=== PATIENT | male | born 1975 | race American Indian/Alaskan Native ===

== ENCOUNTER 2019-06-04 12:49 | Emergency (ER) | payer OTHER ==
[2019-06-04] MEDS ORDERED: NACL 0.9% 1000 ML 1,000 ML IV ONE (13:04)
[2019-06-04] MEDS ORDERED: ZOFRAN IV ONE (13:04)
[2019-06-04] MEDS ORDERED: PEPCID IV ONE (13:04)
[2019-06-04] MEDS ORDERED: TORADOL IV ONE (13:04)
[2019-06-04] MEDS ORDERED: BENTYL IM ONE (13:04)
[2019-06-04] MEDS ORDERED: MORPHINE IV ONE ×2 (13:04→15:21)
--- NOTE | 2019-06-04 13:10 | Event Note ---
ED Screening Note Date of service: 06/04/19 Time: 13:02 ED Screening Note: Patient rt lower abdomen 04/19 achy and constant. No medication. HX on Chrons Disease. Denies rectal bleeding or blood in vomit. Remorts nausea avomiting and diarrhea.. Denies fever or chills. ABD-TTP rlower and mid quadrant. Normal BS. VSS afeb This initial assessment/diagnostic orders/clinical plan/treatment(s) is/are subject to change based on patients health status, clinical progression and re- assessment by fellow clinical providers in the ED. Further treatment and workup at subsequent clinical providers discretion. Patient/guardian urged not to elope from the ED as their condition may be serious if not clinically assessed and managed. PCP DR. Loya GI: Diane Calvo and being worked up. In process of starting stelara which is being processed by insurance Initial orders include: labs, xray
[2019-06-04 13:45] LABS: Basophils # (Auto) 0.1 K/mm3 (0.0-0.1); Basophils % (Auto) 0.9 % (0.0-1.8); Eosinophils # (Auto) 0.1 K/mm3 (0.0-0.4); Eosinophils % (Auto) 1.2 % (0.0-4.3); Hematocrit 41.1 % (35.5-45.6); Hemoglobin 13.3 gm/dl (11.8-15.2); Lymphocytes # (Auto) 1.2 K/mm3 (1.2-5.4); Lymphocytes % (Auto) 18.4 % (13.4-35.0); Mean Corpuscular HGB Conc 33 % (32-34); Mean Corpuscular Volume 80 fl (84-94); Monocytes # (Auto) 0.5 K/mm3 (0.0-0.8); Monocytes % (Auto) 7.7 % (0.0-7.3); Platelet Count 338 K/mm3 (140-440); Red Blood Count 5.17 M/mm3 (3.65-5.03); Red Cell Distribution Width 20.6 % (13.2-15.2)
[2019-06-04 14:05] LABS: Bilirubin,Direct 0.2 mg/dL (0-0.2)
--- NOTE | 2019-06-04 15:15 | Cat Scan Report ---
CT ABDOMEN AND PELVIS WITH CONTRAST HISTORY: NVD right sided abd pain. COMPARISON: None. TECHNIQUE: CT images of the abdomen and pelvis were obtained following administration of intravenous contrast. All CT scans at this location are performed using CT dose reduction for ALARA by means of automated exposure control. CONTRAST: 100 ml of intravenous contrast administered. FINDINGS: Lungs/bones: Lung bases are clear. There are degenerative changes in the spine and pelvis with no ac srinath osseous abnormality identified. Abdomen/pelvis: Right-sided partial colectomy change is present with circumferential wall thickening involving the distal ileum leading up to the anastomotic site. There is also subtle surrounding stra nding in this region. There is moderate hepatic steatosis. The gallbladder, spleen, pancreas, adrenals, kidneys, and proxim al GI tract appear unremarkable. There is a small ventral wall hernia containing fat and a portion of the transverse colon with no bow el obstruction identified. No significant inflammatory change in this region. The prostate is enlarged. The bladder is partially collapsed but otherwise unremarkable. No pelvic fr ee fluid. No acute colonic abnormality. IMPRESSION: 1. Mild circumferential wall thickening in the distal ileum leading up to the anastomotic site consis tent with acute Crohn's flare. 2. Additional incidental findings as above. Signer Name: Andrea Canada MD Signed: 06/04/2019 3:11 PM Workstation Name: [id number]
[2019-06-04] MEDS ORDERED: DILAUDID IV ONE (16:25)
--- NOTE | 2019-06-04 16:31 | Emergency Department Report ---
ED Abdominal Pain HPI - General Chief Complaint: Abdominal Pain Stated Complaint: ABD PAIN Time Seen by Provider: 06/04/19 13:01 Source: patient Mode of arrival: Ambulatory Limitations: No Limitations - History of Present Illness Initial Comments: Patient is a 44-year-old -Algerian male with a past medical history of Crohn's disease who is presenting with nausea vomiting diarrhea. Patient has a history of Crohn's since that 2 bowel resections. Patient was seen his co op is to restart still Era very soon. Patient denies any blood in the vomit or stools. Patient started to worsen this morning. Patient states the pain is 10/10. Patient denies fever cough or congestion at this time. Severity scale (0 -10): 9 - Related Data Previous Rx's Medication Instructions Recorded Last Taken Type Ciprofloxacin HCl [Ciprofloxacin 500 mg PO Q12HR #14 tab 06/04/19 Unknown Rx TAB] Dicyclomine [Bentyl] 20 mg PO QID #10 tablet 06/04/19 Unknown Rx Ondansetron [Zofran Odt] 4 mg PO Q8HR #10 tab.rapdis 06/04/19 Unknown Rx Oxycodone HCl/Acetaminophen 1 each PO Q6HR PRN #14 tablet 06/04/19 Unknown Rx [Percocet 7.5/325 mg] metroNIDAZOLE [Flagyl] 500 mg PO Q12HR #14 tab 06/04/19 Unknown Rx Allergies Allergy/AdvReac Type Severity Reaction Status Date / Time No Known Allergies Allergy Unverified 06/04/19 12:52 ED Review of Systems ROS: Stated complaint: ABD PAIN Other details as noted in HPI Comment: All other systems reviewed and negative ED Past Medical Hx - Past Medical History Previous Medical History?: Yes Hx Hypertension: Yes Hx Kidney Stones: Yes Additional medical history: Crohn disease - Surgical History Past Surgical History?: Yes Additional Surgical History: Bowel resection x 2, Kidney stone surgery - Social History Smoking Status: Never Smoker Substance Use Type: Prescribed - Medications Home Medications: Home Medications Medication Instructions Recorded Confirmed Last Taken Type Ciprofloxacin HCl [Ciprofloxacin 500 mg PO Q12HR #14 tab 06/04/19 Unknown Rx TAB] Dicyclomine [Bentyl] 20 mg PO QID #10 tablet 06/04/19 Unknown Rx Ondansetron [Zofran Odt] 4 mg PO Q8HR #10 tab.rapdis 06/04/19 Unknown Rx Oxycodone HCl/Acetaminophen 1 each PO Q6HR PRN #14 tablet 06/04/19 Unknown Rx [Percocet 7.5/325 mg] metroNIDAZOLE [Flagyl] 500 mg PO Q12HR #14 tab 06/04/19 Unknown Rx ED Physical Exam - General Limitations: No Limitations General appearance: alert, in no apparent distress - Head Head exam: Present: atraumatic, normocephalic - Eye Eye exam: Present: normal appearance - ENT ENT exam: Present: mucous membranes moist - Neck Neck exam: Present: normal inspection - Respiratory Respiratory exam: Present: normal lung sounds bilaterally. Absent: respiratory distress, wheezes, rales, rhonchi - Cardiovascular Cardiovascular Exam: Present: regular rate, normal rhythm. Absent: systolic murmur, diastolic murmur, rubs, gallop - GI/Abdominal GI/Abdominal exam: Present: soft, tenderness (rmid abd), normal bowel sounds. Absent: distended, guarding, rebound, rigid - Rectal Rectal exam: Present: deferred - Extremities Exam Extremities exam: Present: normal inspection - Back Exam Back exam: Present: normal inspection - Neurological Exam Neurological exam: Present: alert, oriented X3 - Psychiatric Psychiatric exam: Present: normal affect, normal mood - Skin Skin exam: Present: warm, dry, intact, normal color. Absent: rash ED Course Vital Signs 06/04/19 06/04/19 06/04/19 12:52 13:40 14:10 Temperature 98.7 F Pulse Rate 102 H Respiratory 18 18 18 Rate Blood Pressure 138/92 O2 Sat by Pulse 97 Oximetry ED Medical Decision Making - Lab Data Result diagrams: 06/04/19 13:12 06/04/19 13:12 Lab Results 06/04/19 06/04/19 Range/Units 13:12 13:12 WBC 6.6 (4.5-11.0) K/mm3 RBC 5.17 H (3.65-5.03) M/mm3 Hgb 13.3 (11.8-15.2) gm/dl Hct 41.1 (35.5-45.6) % MCV 80 L (84-94) fl MCH 26 L (28-32) pg MCHC 33 (32-34) % RDW 20.6 H (13.2-15.2) % Plt Count 338 (140-440) K/mm3 Lymph % (Auto) 18.4 (13.4-35.0) % [place] % (Auto) 7.7 H (0.0-7.3) % Eos % (Auto) 1.2 (0.0-4.3) % Baso % (Auto) 0.9 (0.0-1.8) % Lymph # 1.2 (1.2-5.4) K/mm3 [place] # 0.5 (0.0-0.8) K/mm3 Eos # 0.1 (0.0-0.4) K/mm3 Baso # 0.1 (0.0-0.1) K/mm3 Seg Neutrophils % 71.8 H (40.0-70.0) % Seg Neutrophils # 4.8 (1.8-7.7) K/mm3 Sodium 140 (137-145) mmol/L Potassium 3.6 (3.6-5.0) mmol/L Chloride 101.8 (98-107) mmol/L Carbon Dioxide 22 (22-30) mmol/L Anion Gap 20 mmol/L BUN 11 (9-20) mg/dL Creatinine 1.5 (0.8-1.5) mg/dL Estimated GFR 51 ml/min BUN/Creatinine Ratio 7 % Glucose 219 H (75-100) mg/dL Calcium 9.0 (8.4-10.2) mg/dL Total Bilirubin 1.00 (0.1-1.2) mg/dL Direct Bilirubin 0.2 (0-0.2) mg/dL Indirect Bilirubin 0.8 mg/dL AST 17 (5-40) units/L ALT 22 (7-56) units/L Alkaline Phosphatase 67 (35-129) units/L Total Protein 7.9 (6.3-8.2) g/dL Albumin 4.0 (3.9-5) g/dL Albumin/Globulin Ratio 1.0 % Lipase 42 (13-60) units/L - Radiology Data [facility] [address] [place] [address] Cat Scan Report Signed Patient: RAFAEL SONI MR#: [id number] : 1975 Acct:[id number] Age/Sex: 44 / M ADM Date: 06/04/19 Loc: ED Attending Dr: Ordering Physician: CAMMIE MILLER MD Date of Service: 06/04/19 Procedure(s): CT abdomen pelvis w con Accession Number(s): [id number] cc: CAMMIE MILLER MD CT ABDOMEN AND PELVIS WITH CONTRAST HISTORY: NVD right sided abd pain. COMPARISON: None. TECHNIQUE: CT images of the abdomen and pelvis were obtained following administration of intravenous contrast. All CT scans at this location are performed using CT dose reduction for ALARA by means of automated exposure control. CONTRAST: 100 ml of intravenous contrast administered. FINDINGS: Lungs/bones: Lung bases are clear. There are degenerative changes in the spine and pelvis with no acute osseous abnormality identified. Abdomen/pelvis: Right-sided partial colectomy change is present with circumferential wall thickening involving the distal ileum leading up to the anastomotic site. There is also subtle surrounding stranding in this region. There is moderate hepatic steatosis. The gallbladder, spleen, pancreas, adrenals, kidneys, and proximal GI tract appear unremarkable. There is a small ventral wall hernia containing fat and a portion of the transverse colon with no bowel obstruction identified. No significant inflammatory change in this region. The prostate is enlarged. The bladder is partially collapsed but otherwise unremarkable. No pelvic free fluid. No acute colonic abnormality. IMPRESSION: 1. Mild circumferential wall thickening in the distal ileum leading up to the anastomotic site consistent with acute Crohn's flare. 2. Additional incidental findings as above. Signer Name: Andrea Canada MD Signed: 06/04/2019 3:11 PM Workstation Name: [id number] - Medical Decision Making Patient is a 44-year-old -Algerian male with history of Crohn's disease who is coming in with nausea vomiting abdominal pain. After 2 doses of morphine patient states his pain went from a 10-8. Patient states his pain is better controlled with Dilaudid be given one more dose. The patient appears relatively comfortable here in emergency department despite his high pain number. Patient is no longer nauseous. I think the patient is a good candidate for home therap y. Critical care attestation.: If time is entered above; I have spent that time in minutes in the direct care of this critically ill patient, excluding procedure time. ED Disposition Clinical Impression: Exacerbation of Crohn's disease Disposition: TO HOME OR SELFCARE Is pt being admited?: No Does the pt Need Aspirin: No Condition: Stable Instructions: Crohn Disease (ED) Referrals: DAMION ELLIOTT MD [Primary Care Provider] - 3-5 Days Time of Disposition: 16:35
[2019-06-04 17:00] VITALS: BP 133/87
== END 2019-06-04 16:51 | disposition home or self-care (01) ==
LOC: ED 12:49
DX: K50.90 Crohn's disease, unspecified, without complications (principal); R11.2 Nausea with vomiting, unspecified; I10 Essential (primary) hypertension; Z87.442 Personal history of urinary calculi; Z79.899 Other long term (current) drug therapy
CPT/HCPCS: 36415; 74177; 80048; 80076; 83690; 85025; 96361; 96372; 96374; 96375; 96376; 99284; J0500; J1170; J1885; J2270; J2405; J7030; Q9967

== ENCOUNTER 2019-06-19 06:22 | Emergency (ER) | payer OTHER ==
[2019-06-19 07:06] LABS: Alanine Aminotransferase 17 units/L (7-56); Albumin 4.1 g/dL (3.9-5); BUN/Creatinine Ratio 12; Blood Urea Nitrogen 13 mg/dL (9-20); Calcium 9.4 mg/dL (8.4-10.2); Hemolysis Index 3
[2019-06-19 07:12] LABS: Basophils % (Auto) 0.2 % (0.0-1.8); Eosinophils % (Auto) 0.3 % (0.0-4.3); Hematocrit 32.8 % (35.5-45.6); Hemoglobin 10.8 gm/dl (11.8-15.2); Lymphocytes # (Auto) 1.6 K/mm3 (1.2-5.4); Lymphocytes % (Auto) 16.4 % (13.4-35.0); Mean Corpuscular HGB Conc 33 % (32-34); Mean Corpuscular Volume 78 fl (84-94); Monocytes # (Auto) 0.9 K/mm3 (0.0-0.8); Monocytes % (Auto) 9.1 % (0.0-7.3); Platelet Count 308 K/mm3 (140-440); Red Cell Distribution Width 19.6 % (13.2-15.2)
[2019-06-19] MEDS ORDERED: oxyCODONE /ACETAMINOPHEN 5-325MG TAB PO ONE ×3 (08:11→13:48)
[2019-06-19] MEDS ORDERED: SODIUM CHLORIDE 0.9% 1000 ML 1,000 ML IV ONE (08:11)
[2019-06-19] MEDS ORDERED: ONDANSETRON 4 MG/2 ML INJ IV ONE (08:11)
[2019-06-19] MEDS ORDERED: MORPHINE 4 MG/1 ML INJ IV ONE ×3 (08:11→13:48)
[2019-06-19] MEDS ORDERED: ONDANSETRON 4 MG/2 ML INJ ONE (10:26)
[2019-06-19] MEDS ORDERED: MORPHINE 4 MG/1 ML INJ ONE (10:27)
[2019-06-19] MEDS ORDERED: levoFLOXacin 500 MG TAB PO ONE (10:54)
--- NOTE | 2019-06-19 10:57 | Emergency Department Report ---
ED Abdominal Pain HPI - General Chief Complaint: Abdominal Pain Stated Complaint: BEBETOMES Time Seen by Provider: 06/19/19 07:44 Source: patient Mode of arrival: Ambulatory Limitations: No Limitations - History of Present Illness Initial Comments: CC: "I am having a crohn's pain. My hip is also hurting." HPI: Mr. Houston is a 44-year-old male with history of Crohn's disease, hypertension who presents with right lower quadrant abdominal pain and chronic hip pain. Abdominal pain began last night at 8:00 with nausea vomiting. Denies any diarrhea. For the past several months he has been unable to receive Sular medication by his GI physician Dr. Rozina Mccarty with [facility]. He has been unemployed. He now has regained employment. He now has health insurance. He plans to resume Sular therapy. However since not having this medication for the past year he has had more Crohn's flares: He's had normal bowel movements. No constipation or diarrhea. He also has chronic hip pain due to avascular necrosis. Last use of steroids one month ago. MD Complaint: abdominal pain -: Gradual, Last night Location: RLQ Radiation: none Severity: severe Severity scale (0 -10): 10 Quality: aching Consistency: constant Improves With: nothing Worsens With: nothing Associated Symptoms: nausea, vomiting, other (chronic right hip pain) - Related Data Previous Rx's Medication Instructions Recorded Last Taken Type Ciprofloxacin HCl [Ciprofloxacin 500 mg PO Q12HR #14 tab 06/04/19 Unknown Rx TAB] Dicyclomine [Bentyl] 20 mg PO QID #10 tablet 06/04/19 Unknown Rx Ondansetron [Zofran Odt] 4 mg PO Q8HR #10 tab.rapdis 06/04/19 Unknown Rx Oxycodone HCl/Acetaminophen 1 each PO Q6HR PRN #14 tablet 06/04/19 Unknown Rx [Percocet 7.5/325 mg] metroNIDAZOLE [Flagyl] 500 mg PO Q12HR #14 tab 06/04/19 Unknown Rx Oxycodone HCl/Acetaminophen 1 each PO Q6HR PRN #10 tablet 06/19/19 Unknown Rx [Percocet 10/325 mg] Prednisone [predniSONE 10 mg 10 mg PO .TAPER #1 tab.ds.pk 06/19/19 Unknown Rx (6-Day Pack, 21 Tabs)] levoFLOXacin [Levaquin TAB] 500 mg PO QDAY 7 Days #7 tablet 06/19/19 Unknown Rx Allergies Allergy/AdvReac Type Severity Reaction Status Date / Time No Known Allergies Allergy Unverified 06/04/19 12:52 ED Review of Systems ROS: Stated complaint: CROMES Other details as noted in HPI Comment: All other systems reviewed and negative Constitutional: denies: fever, malaise Gastrointestinal: abdominal pain, nausea, vomiting. denies: diarrhea, constipation Musculoskeletal: arthralgia ED Past Medical Hx - Past Medical History Previous Medical History?: Yes Hx Hypertension: Yes Hx Kidney Stones: Yes Additional medical history: Crohn disease - Surgical History Past Surgical History?: Yes Additional Surgical History: Bowel resection x 2, Kidney stone surgery - Social History Smoking Status: Never Smoker Substance Use Type: None - Medications Home Medications: Home Medications Medication Instructions Recorded Confirmed Last Taken Type Ciprofloxacin HCl [Ciprofloxacin 500 mg PO Q12HR #14 tab 06/04/19 Unknown Rx TAB] Dicyclomine [Bentyl] 20 mg PO QID #10 tablet 06/04/19 Unknown Rx Ondansetron [Zofran Odt] 4 mg PO Q8HR #10 tab.rapdis 06/04/19 Unknown Rx Oxycodone HCl/Acetaminophen 1 each PO Q6HR PRN #14 tablet 06/04/19 Unknown Rx [Percocet 7.5/325 mg] metroNIDAZOLE [Flagyl] 500 mg PO Q12HR #14 tab 06/04/19 Unknown Rx Oxycodone HCl/Acetaminophen 1 each PO Q6HR PRN #10 tablet 06/19/19 Unknown Rx [Percocet 10/325 mg] Prednisone [predniSONE 10 mg 10 mg PO .TAPER #1 tab.ds.pk 06/19/19 Unknown Rx (6-Day Pack, 21 Tabs)] levoFLOXacin [Levaquin TAB] 500 mg PO QDAY 7 Days #7 tablet 06/19/19 Unknown Rx ED Physical Exam - General Limitations: No Limitations General appearance: alert, in no apparent distress, other (appears comfortable) - Head Head exam: Present: atraumatic, normocephalic - Eye Eye exam: Present: normal appearance - ENT ENT exam: Present: mucous membranes moist - Neck Neck exam: Present: normal inspection, full ROM - Respiratory Respiratory exam: Present: normal lung sounds bilaterally. Absent: respiratory distress, wheezes, rales, rhonchi - Cardiovascular Cardiovascular Exam: Present: regular rate, normal rhythm, normal heart sounds. Absent: systolic murmur, diastolic murmur, rubs, gallop - GI/Abdominal GI/Abdominal exam: Present: soft. Absent: distended, tenderness, guarding, rebound - Rectal Rectal exam: Present: deferred - Extremities Exam Extremities exam: Present: normal inspection - Neurological Exam Neurological exam: Present: alert, oriented X3 - Psychiatric Psychiatric exam: Present: normal affect, normal mood - Skin Skin exam: Present: warm, dry, intact, normal color. Absent: rash ED Course Vital Signs 06/19/19 06/19/19 06/19/19 06:25 06:26 10:33 Temperature 98.3 F Pulse Rate 93 H 67 72 Respiratory 20 20 Rate Blood Pressure 161/94 Blood Pressure 166/101 150/93 [Right] O2 Sat by Pulse 100 99 Oximetry 06/19/19 12:18 Temperature Pulse Rate Respiratory Rate Blood Pressure Blood Pressure 145/87 [Right] O2 Sat by Pulse Oximetry ED Medical Decision Making - Lab Data Result diagrams: 06/19/19 06:36 06/19/19 06:36 Laboratory Results - last 24 hr 06/19/19 06/19/19 06:36 06:36 WBC 9.7 RBC 4.20 Hgb 10.8 L Hct 32.8 L MCV 78 L MCH 26 L MCHC 33 RDW 19.6 H Plt Count 308 Lymph % (Auto) 16.4 [place] % (Auto) 9.1 H Eos % (Auto) 0.3 Baso % (Auto) 0.2 Lymph # 1.6 [place] # 0.9 H Eos # 0.0 Baso # 0.0 Seg Neutrophils % 74.0 H Seg Neutrophils # 7.2 Sodium 136 L Potassium 3.0 L Chloride 95.7 L Carbon Dioxide 23 Anion Gap 20 BUN 13 Creatinine 1.1 Estimated GFR > 60 BUN/Creatinine Ratio 12 Glucose 119 H Calcium 9.4 Total Bilirubin 1.20 AST 13 ALT 17 Alkaline Phosphatase 72 Total Protein 8.6 H Albumin 4.1 Albumin/Globulin Ratio 0.9 - Medical Decision Making Mr. Houston presents with RLQ abdominal pain with n/v. I reviewed electronic record, mild thickening in the distal ileum consistent with acute Crohn's flare was seen on CT abdomien pelvis obtained 06/04/2019. Clinical impression: Persistent Crohn's exacerbation without obstruction or peritonitis I have prescribed Percocet, prednisone taper therapy, Levaquin. Chronic right hip pain with history of AVN history of trauma, will be addressed with Percocet therapy, given referral to orthopedic surgeon Pain controlled with morphine and percocet. Mr. Houston has recently moved from [facility]. Attempting to establish care in [facility] Critical care attestation.: If time is entered above; I have spent that time in minutes in the direct care of this critically ill patient, excluding procedure time. ED Disposition Clinical Impression: Exacerbation of Crohn's disease of small intestine, Avascular necrosis of bone of right hip Disposition: - TO HOME OR SELFCARE Is pt being admited?: No Does the pt Need Aspirin: No Condition: Stable Additional Instructions: Please see Dr. Mccarty this week. Prescriptions: levoFLOXacin [Levaquin TAB] 500 mg PO QDAY 7 Days #7 tablet Oxycodone HCl/Acetaminophen [Percocet 10/325 mg] 1 each PO Q6HR PRN #10 tablet PRN Reason: Pain Prednisone [predniSONE 10 mg (6-Day Pack, 21 Tabs)] 10 mg PO .TAPER #1 tab.ds.pk Referrals: ROZINA MCCARTY MD [Staff Physician] - 3-5 Days ELAYNE RITCHIE MD [Staff Physician] - 3-5 Days Forms: Work/School Release Form(ED)
[2019-06-19 11:57] LABS: Bilirubin,Urine NEG (Negative); Blood,Urine SM (Negative); Color,Urine Straw (Yellow); Protein,Urine <15 mg/dL mg/dL (Negative); Urobilinogen,Urine < 2.0 mg/dL (<2.0)
[2019-06-19 14:19] VITALS: BP 130/73
== END 2019-06-19 14:55 | disposition home or self-care (01) ==
LOC: ED 06:22
DX: K50.00 Crohn's disease of small intestine without complications (principal); M87.051 Idiopathic aseptic necrosis of right femur; I10 Essential (primary) hypertension; G89.29 Other chronic pain; R11.2 Nausea with vomiting, unspecified; Z79.899 Other long term (current) drug therapy; Z87.442 Personal history of urinary calculi
CPT/HCPCS: 36415; 80053; 81001; 85025; 96361; 96374; 96375; 96376; 99283; J2270; J2405; J7030

== ENCOUNTER 2019-08-18 13:39 | Emergency (ER) | payer OTHER ==
--- NOTE | 2019-08-18 14:56 | Event Note ---
ED Screening Note ED Screening Note: WEAK W BLOODY STOOLS HX CHRONES SAW GI 2 W AGO AND MEDS CHANGED WORSENING BLEEDING This initial assessment/diagnostic orders/clinical plan/treatment(s) is/are subject to change based on patients health status, clinical progression and re- assessment by fellow clinical providers in the ED. Further treatment and workup at subsequent clinical providers discretion. Patient/guardian urged not to elope from the ED as their condition may be serious if not clinically assessed and managed. Initial orders include: LABS
[2019-08-18] MEDS ORDERED: MORPHINE 4 MG/1 ML INJ IV ONE (15:49)
[2019-08-18] MEDS ORDERED: SODIUM CHLORIDE 0.9% 1000 ML 1,000 ML IV ONE (15:49)
[2019-08-18] MEDS ORDERED: ONDANSETRON 4 MG/2 ML INJ IV ONE (15:49)
[2019-08-18 15:57] LABS: Basophils % (Auto) 0.3 % (0.0-1.8); Eosinophils % (Auto) 0.5 % (0.0-4.3); Hematocrit 35.7 % (35.5-45.6); Hemoglobin 11.6 gm/dl (11.8-15.2); Lymphocytes # (Auto) 2.2 K/mm3 (1.2-5.4); Lymphocytes % (Auto) 31.1 % (13.4-35.0); Mean Corpuscular HGB Conc 32 % (32-34); Mean Corpuscular Volume 81 fl (84-94); Monocytes # (Auto) 0.4 K/mm3 (0.0-0.8); Monocytes % (Auto) 6.4 % (0.0-7.3); Platelet Count 402 K/mm3 (140-440); Red Blood Count 4.43 M/mm3 (3.65-5.03)
[2019-08-18 16:04] LABS: Red Cell Distribution Width 22.5 % (13.2-15.2)
[2019-08-18 16:23] LABS: Alanine Aminotransferase 22 units/L (7-56); Albumin 3.4 g/dL (3.9-5); BUN/Creatinine Ratio 10; Blood Urea Nitrogen 12 mg/dL (9-20); Calcium 8.8 mg/dL (8.4-10.2); Hemolysis Index 46
[2019-08-18 16:38] LABS: Bilirubin,Urine NEG (Negative); Blood,Urine NEG (Negative); Color,Urine Straw (Yellow); Mucus,Urine FEW /HPF; Protein,Urine <15 mg/dL mg/dL (Negative); Urobilinogen,Urine < 2.0 mg/dL (<2.0)
[2019-08-18] MEDS ORDERED: POTASSIUM CHLORIDE ER 20 MEQ TAB PO ONE (16:41)
--- NOTE | 2019-08-18 17:35 | Emergency Department Report ---
ED Abdominal Pain HPI - General Chief Complaint: Abdominal Pain Stated Complaint: ABD PAIN Time Seen by Provider: 08/18/19 14:55 Source: patient Mode of arrival: Ambulatory Limitations: No Limitations - History of Present Illness Initial Comments: This is a 44-year-old male nontoxic, well nourished in appearance, no acute signs of distress presents to the ED with c/o of diarrhea, nausea and vomiting and abdominal pain 1 day. Patient describes vomiting as food content and yellow gastric acid. Patient describes abdominal pain as cramping and aching with level of 8/10 diffuse. Patient denies chest pain, short of breath, fever, chills, headache, stiff neck, numbness or tingling. Patient denies any constipation. Patient also stated has some diarrhea and saw some blood that was light. Patient denies any recent travels. Patient denies any allergies. PMH includes Crohn's disease. MD Complaint: abdominal pain -: days(s) Location: diffuse Radiation: none Migration to: no migration Severity: mild Severity scale (0 -10): 8 Quality: cramping, aching Consistency: constant Improves With: nothing Worsens With: nothing Associated Symptoms: nausea, vomiting, diarrhea. denies: fever, chills, constipation, dysuria, hematemesis, hematochezia, melena, hematuria, anorexia, syncope - Related Data Previous Rx's Medication Instructions Recorded Last Taken Type Ciprofloxacin HCl [Ciprofloxacin 500 mg PO Q12HR #14 tab 06/04/19 Unknown Rx TAB] Dicyclomine [Bentyl] 20 mg PO QID #10 tablet 06/04/19 Unknown Rx Ondansetron [Zofran Odt] 4 mg PO Q8HR #10 tab.rapdis 06/04/19 Unknown Rx Oxycodone HCl/Acetaminophen 1 each PO Q6HR PRN #14 tablet 06/04/19 Unknown Rx [Percocet 7.5/325 mg] metroNIDAZOLE [Flagyl] 500 mg PO Q12HR #14 tab 06/04/19 Unknown Rx Oxycodone HCl/Acetaminophen 1 each PO Q6HR PRN #10 tablet 06/19/19 Unknown Rx [Percocet 10/325 mg] Prednisone [predniSONE 10 mg 10 mg PO .TAPER #1 tab.ds.pk 06/19/19 Unknown Rx (6-Day Pack, 21 Tabs)] levoFLOXacin [Levaquin TAB] 500 mg PO QDAY 7 Days #7 tablet 06/19/19 Unknown Rx Acetaminophen/Codeine [Tylenol 1 tab PO Q6H PRN #15 tab 08/18/19 Unknown Rx /Codeine # 3 tab] Ciprofloxacin HCl [Ciprofloxacin 500 mg PO Q12HR #14 tab 08/18/19 Unknown Rx TAB] Prednisone [predniSONE 10 mg 10 mg PO .TAPER #1 tab.ds.pk 08/18/19 Unknown Rx (6-Day Pack, 21 Tabs)] Allergies Allergy/AdvReac Type Severity Reaction Status Date / Time No Known Allergies Allergy Unverified 06/04/19 12:52 ED Review of Systems ROS: Stated complaint: ABD PAIN Other details as noted in HPI Constitutional: denies: chills, fever Eyes: denies: eye pain, eye discharge, vision change ENT: denies: ear pain, throat pain Respiratory: denies: cough, shortness of breath, wheezing Cardiovascular: denies: chest pain, palpitations Endocrine: no symptoms reported Gastrointestinal: abdominal pain, nausea, vomiting, diarrhea. denies: constipation Genitourinary: denies: urgency, dysuria Musculoskeletal: denies: back pain, joint swelling, arthralgia Skin: denies: rash, lesions Neurological: denies: headache, weakness, paresthesias Psychiatric: denies: anxiety, depression Hematological/Lymphatic: denies: easy bleeding, easy bruising ED Past Medical Hx - Past Medical History Hx Hypertension: Yes Hx Kidney Stones: Yes Additional medical history: Crohn disease - Surgical History Additional Surgical History: Bowel resection x 2, Kidney stone surgery - Social History Smoking Status: Never Smoker Substance Use Type: None - Medications Home Medications: Home Medications Medication Instructions Recorded Confirmed Last Taken Type Ciprofloxacin HCl [Ciprofloxacin 500 mg PO Q12HR #14 tab 06/04/19 Unknown Rx TAB] Dicyclomine [Bentyl] 20 mg PO QID #10 tablet 06/04/19 Unknown Rx Ondansetron [Zofran Odt] 4 mg PO Q8HR #10 tab.rapdis 06/04/19 Unknown Rx Oxycodone HCl/Acetaminophen 1 each PO Q6HR PRN #14 tablet 06/04/19 Unknown Rx [Percocet 7.5/325 mg] metroNIDAZOLE [Flagyl] 500 mg PO Q12HR #14 tab 06/04/19 Unknown Rx Oxycodone HCl/Acetaminophen 1 each PO Q6HR PRN #10 tablet 06/19/19 Unknown Rx [Percocet 10/325 mg] Prednisone [predniSONE 10 mg 10 mg PO .TAPER #1 tab.ds.pk 06/19/19 Unknown Rx (6-Day Pack, 21 Tabs)] levoFLOXacin [Levaquin TAB] 500 mg PO QDAY 7 Days #7 tablet 06/19/19 Unknown Rx Acetaminophen/Codeine [Tylenol 1 tab PO Q6H PRN #15 tab 08/18/19 Unknown Rx /Codeine # 3 tab] Ciprofloxacin HCl [Ciprofloxacin 500 mg PO Q12HR #14 tab 08/18/19 Unknown Rx TAB] Prednisone [predniSONE 10 mg 10 mg PO .TAPER #1 tab.ds.pk 08/18/19 Unknown Rx (6-Day Pack, 21 Tabs)] ED Physical Exam - General Limitations: No Limitations General appearance: alert, in no apparent distress - Head Head exam: Present: atraumatic, normocephalic - Neck Neck exam: Present: normal inspection, full ROM. Absent: tenderness, meningismus, lymphadenopathy - Respiratory Respiratory exam: Present: normal lung sounds bilaterally. Absent: respiratory distress, wheezes, rales, rhonchi, stridor, chest wall tenderness, accessory muscle use, decreased breath sounds, prolonged expiratory - Cardiovascular Cardiovascular Exam: Present: regular rate, normal rhythm, normal heart sounds. Absent: bradycardia, tachycardia, irregular rhythm, systolic murmur, diastolic murmur, rubs, gallop - GI/Abdominal GI/Abdominal exam: Present: soft, tenderness, normal bowel sounds. Absent: distended, guarding, rebound, rigid, diminished bowel sounds - Rectal Rectal exam: Present: normal inspection, normal rectal tone. Absent: decreased rectal tone, heme (+) stool, black stool, bloody stool, fecal impaction, hemorrhoids, mass, tenderness - Extremities Exam Extremities exam: Present: normal inspection, full ROM - Back Exam Back exam: Present: normal inspection, full ROM. Absent: tenderness, CVA tender ness (R), CVA tenderness (L), muscle spasm, paraspinal tenderness, vertebral tenderness, rash noted - Neurological Exam Neurological exam: Present: alert, oriented X3, normal gait - Psychiatric Psychiatric exam: Present: normal affect, normal mood - Skin Skin exam: Present: warm, dry, intact, normal color. Absent: rash ED Course Vital Signs 08/18/19 08/18/19 13:55 15:47 Temperature 98.4 F Pulse Rate 90 Respiratory 18 16 Rate Blood Pressure 138/95 O2 Sat by Pulse 97 Oximetry - Reevaluation(s) Reevaluation #1: 08/18/19 17:36 Patient is speaking in full sentences with no signs of distress noted. ED Medical Decision Making - Lab Data Result diagrams: 08/18/19 15:07 08/18/19 15:07 - Medical Decision Making This is a 44-year-old male that presents with colitis. Patient is stable and was examined by me. There is no abdominal tenderness. Negative signs of symptoms of appendicitis. Labs obtained. UA obtained. CT of abdomen obtained and dictated by the radiologist. Patient is notified of the report with no questions noted by the patient. Vital signs are stable prior to discharge. Patient received medical treatment in the ED which patient stated symptoms has resovled and subsided. Was instructed note to operate any machinery due to possible drowsiness and stated someone will drive the patient home. A by mouth challenge has been obtained and patient tolerated well with no nausea vomiting. Patient was also instructed to Follow-up with a primary care doctor in 3-5 days or if symptoms worsen and continue return to emergency room as soon as possible. At time of discharge, the patient does not seem toxic or ill in appearance. No acute signs of distress noted. Patient agrees to discharge treatment plan of care. No further questions noted by the patient. Critical care attestation.: If time is entered above; I have spent that time in minutes in the direct care of this critically ill patient, excluding procedure time. ED Disposition Clinical Impression: Colitis Exacerbation of Crohn's disease Qualifiers: Digestive disease complication type: unspecified complication Qualified Code(s): K50.919 - Crohn's disease, unspecified, with unspecified complications Disposition: -01 TO HOME OR SELFCARE Is pt being admited?: No Does the pt Need Aspirin: No Condition: Stable Instructions: Crohn Disease (ED), Ulcerative Colitis (ED), Acetaminophen/Codeine (By mouth) Additional Instructions: Follow-up with a equipment operating engineer doctor in 3-5 days or if symptoms worsen and continue return to emergency room as soon as possible. Prescriptions: Ciprofloxacin HCl [Ciprofloxacin TAB] 500 mg PO Q12HR #14 tab Prednisone [predniSONE 10 mg (6-Day Pack, 21 Tabs)] 10 mg PO .TAPER #1 tab.ds.pk Acetaminophen/Codeine [Tylenol /Codeine # 3 tab] 1 tab PO Q6H PRN #15 tab PRN Reason: Pain , Severe (7-10) Referrals: SHAE THURMAN MD [Primary Care Provider] - 3-5 Days PRIMARY CARE, [Referring] - 3-5 Days MANUEL LOVE MD [Staff Physician] - 3-5 Days [facility] [Outside] - 3-5 Days [facility] [Provider Group] - 3-5 Days Forms: Work/School Release Form(ED)
--- NOTE | 2019-08-18 18:11 | Cat Scan Report ---
CT ABDOMEN AND PELVIS WITH IV CONTRAST INDICATION: abd pain with blood in stool. COMPARISON: None available. TECHNIQUE: Axial CT images were obtained through the abdomen and pelvis after IV contrast. All CT scans at this location are performed using CT dose reduction for ALARA by means of automated exposure control. FINDINGS -- ABDOMEN: Lung Bases: No acute abnormality. Liver: Normal. Gallbladder: Contracted, limited in appearance.. Bile Ducts: Normal. Pancreas: Normal. Spleen: Normal. Adrenals: Normal. Right Kidney and Proximal Ureter: Normal. Left Kidney and Proximal Ureter: Normal. Stomach and Bowel: Normal. Lymph Nodes: No significant adenopathy. Aorta: No significant abnormality. IVC: Normal. Additional Findings: Ventral abdominal wall hernia containing nonincarcerated loops of transverse col on and mesenteric fat.. FINDINGS -- PELVIS: Urinary Bladder and Distal Ureters: Normal. Reproductive Organs: No acute abnormality. Appendix: Not well identified. The patient had prior appendectomy. Bowel: Borderline mucosal thickening involving the descending co nicole and the sigmoid colon. Free Fluid: None. Lymph Nodes: No significant adenopathy. Additional Findings: None. Skeletal System: No acute abnormality. IMPRESSION: Question low-level colitis, primarily of the distal descending colon and sigmoid colon. No evidence o f bowel obstruction. Signer Name: Ashish Mckeon MD Signed: 08/18/2019 6:06 PM Workstation Name: [id number]
[2019-08-18 18:45] VITALS: BP 160/104
== END 2019-08-18 18:45 | disposition home or self-care (01) ==
LOC: ED 13:39
DX: K52.9 Noninfective gastroenteritis and colitis, unspecified (principal); K50.919 Crohn's disease, unspecified, with unspecified complications; I10 Essential (primary) hypertension; N20.0 Calculus of kidney; Z98.890 Other specified postprocedural states; Z79.899 Other long term (current) drug therapy
CPT/HCPCS: 36415; 74177; 80053; 81001; 83690; 85025; 87086; 96361; 96374; 96375; 99284; J2270; J2405; J7030; Q9967